=== PATIENT | female | born 1960 ===

== ENCOUNTER 2017-10-18 17:20 | Emergency (ER) | payer SELFPAY ==
[~2017-10-18] VITALS: Ht 167.6 cm; Wt 75.0 kg
[2017-10-18 17:30] VITALS: BP 166/84; TEMP 98; O2SAT 98
== END 2017-10-18 19:45 | disposition left against medical advice (07) ==
LOC: NED 17:20
DX: Z04.1 Encounter for examination and observation following transport accident (principal)
CPT/HCPCS: 99281